=== PATIENT | male | born 1995 ===

== ENCOUNTER 2018-05-12 08:41 | Outpatient (CLI) | payer OTHER ==
[~2018-05-12] VITALS: Ht 177.8 cm; Wt 61.2 kg
== END 2018-05-12 09:00 | disposition home or self-care (01) ==
LOC: OFIC 805 08:41
DX: H91.8X3 Other specified hearing loss, bilateral (principal); H61.23 Impacted cerumen, bilateral; J30.89 Other allergic rhinitis